=== PATIENT | male | born 1980 | race Caucasian/White ===

== ENCOUNTER 2023-01-30 22:03 | Emergency (ER) | payer MEDICAID ==
[~2023-01-30] VITALS: Ht 157.5 cm; Wt 73.0 kg
[~2023-01-30 22:03] MED LIST: ATOR20TA PO; TOPUD PO; TRAM50TA3 PO
[2023-01-30 22:20] VITALS: BP 126/82; PULSE 89; RESP 16; TEMP 98.3; O2SAT 98
[2023-01-30 23:07] LABS: HEMOGLOBIN 12.8 g/dL (14.0-18.0); MEAN CORPUSCULAR HEMOGLOBIN 30.1 pg (28.0-32.0); MEAN CORPUSCULAR HGB CONC 33.8 g/dL (31.0-37.0); MEAN CORPUSCULAR VOLUME 89.1 fL (80.0-94.0); PLATELET 497 x1000/uL (130-400); RED BLOOD CELL COUNT 4.27 mill/uL (4.7-6.1); RED CELL DISTRIBUTION WIDTH 13.3 % (11.6-14.6); WHITE BLOOD COUNT 11.7 x1000/uL (4.5-11.0)
[2023-01-30 23:13] LABS: CHLORIDE 106 mEq/L (98-107); INDEX HEMOLYSI 1 (1-3); INDEX ICTERIC 1 (1-4); INDEX LIPEMIC 1 (1-3); POTASSIUM 3.3 mEq/L (3.5-5.1); SODIUM 136 mEq/L (136-145)
[2023-01-30 23:23] LABS: ALANINE AMINOTRANSFERASE 40 IU/L (13-61); ALBUMIN 3.7 g/dL (3.4-5.0); ASPARTATE AMINOTRANSFERASE 22 IU/L (15-37); BILIRUBIN TOTAL 0.4 mg/dL (0.1-1.0); CALCIUM 8.9 mg/dL (8.5-10.1); CARBON DIOXIDE 23 mEq/L (21-32); CREATININE 0.7 mg/dL (0.6-1.3); GLUCOSE 115 mg/dL (70-105); PROTEIN TOTAL 7.9 g/dL (6.0-8.3); UREA NITROGEN BLOOD 21 mg/dL (7-21)
[2023-01-30 23:27] LABS: TROPONIN I HIGH SENSITIVITY < 4 ng/L (<78)
[2023-01-31] MEDS ORDERED: KETOROLAC 15MG/ML VIAL IM ONE (04:30)
[2023-01-31] MEDS ORDERED: NAPR-681 MT (06:03)
== END 2023-01-31 06:18 | disposition home or self-care (01) ==
LOC: ER 22:03
DX: R07.89 Other chest pain (principal)
CPT/HCPCS: 99285; 71045; 80053; 85027; 84484; 36415; 93005; 96372; J1885

== ENCOUNTER 2024-07-04 13:24 | Emergency (ER) | payer MEDICAID ==
[~2024-07-04] VITALS: Ht 162.6 cm; Wt 81.6 kg
[~2024-07-04 13:24] MED LIST changes: +NAPR-681 MT
[2024-07-04 13:48] VITALS: O2SAT 100
[2024-07-04 14:19] LABS: CHLORIDE 107 mEq/L (98-107); POTASSIUM 3.5 mEq/L (3.5-5.1); SODIUM 139 mEq/L (136-145)
[2024-07-04 14:20] LABS: CARBON DIOXIDE 22 mEq/L (21-32)
[2024-07-04 14:21] LABS: CALCIUM 9.1 mg/dL (8.7-10.4)
[2024-07-04 14:22] LABS: BASOPHILS % 1.1 % (0.0-2.0); EOSINOPHILS % 2.9 % (0.0-5.0); HEMATOCRIT. 38.8 % (42.0-52.0); HEMOGLOBIN. 13.5 g/dL (14.0-18.0); LYMPHOCYTES % 31.9 % (20.0-50.0); MEAN CORPUSCULAR HEMOGLOBIN 30.3 pg (28.0-32.0); MEAN CORPUSCULAR HGB CONC 34.8 g/dL (31.0-37.0); MEAN CORPUSCULAR VOLUME 87.1 fL (80.0-94.0); MEAN PLATELET VOLUME 6.6 fl (7.4-10.4); MONOCYTES % 7.5 % (2.0-8.0); NEUTROPHILS % 56.6 % (40.0-76.0); PLATELET 441 x1000/uL (130-400); RED BLOOD CELL COUNT 4.45 mill/uL (4.7-6.1); WHITE BLOOD COUNT 6.9 x1000/uL (4.5-11.0)
[2024-07-04 14:25] LABS: CREATININE 0.8 mg/dL (0.6-1.3); GLUCOSE 137 mg/dL (70-105)
[2024-07-04 14:26] LABS: UREA NITROGEN BLOOD 14 mg/dL (9-23)
[2024-07-04] MEDS ORDERED: ONDANSETRON HCL 4MG/2ML INJ IV STA (14:37)
[2024-07-04] MEDS ORDERED: KETOROLAC 30MG/ML VIAL IV STA (14:37)
[2024-07-04 15:03] LABS: PROTHROMBIN TIME 11.5 sec (9.6-11.0)
[2024-07-04 15:07] LABS: ALANINE AMINOTRANSFERASE 21 IU/L (10-49); ALBUMIN 4.3 g/dL (3.2-4.8); ASPARTATE AMINOTRANSFERASE 19 IU/L (<34); BILIRUBIN DIRECT 0.1 mg/dL (<=3.0); BILIRUBIN TOTAL 0.4 mg/dL (0.1-1.0); PROTEIN TOTAL 7.8 g/dL (6.0-8.3)
[2024-07-04] MEDS: SODIUM CHLORIDE 0.9% 1,000 ML IV ONE (19:37)
[2024-07-04] MEDS: ONDANSETRON HCL 4MG/2ML INJ IV NR (19:59)
[2024-07-04] MEDS: KETOROLAC 30MG/ML VIAL IV NR (19:59)
[2024-07-04] MEDS ORDERED: NAPR-681 MT (22:05)
[2024-07-04] MEDS ORDERED: BISM-77 PO (22:05)
[2024-07-04 22:09] LABS: CLARITY URINE CLEAR (CLEAR); COLOR URINE YELLOW (YELLOW); GLUCOSE URINE NEGATIVE (NEGATIVE); KETONES URINE NEGATIVE (NEGATIVE); LEUKOCYTE ESTERASE URINE 1+ (NEGATIVE); NITRITE URINE NEGATIVE (NEGATIVE); OCCULT BLOOD URINE NEGATIVE (NEGATIVE); PH URINE 5.5 (4.5-8.0); PROTEIN URINE NEGATIVE (NEGATIVE); SPECIFIC GRAVITY URINE 1.015 (1.005-1.030); UROBILINOGEN URINE 0.2 E.U./dL (0.2-1.0)
[2024-07-04 22:30] VITALS: BP 129/74; PULSE 75; RESP 16; TEMP 37.16964; O2SAT 100
[2024-07-04 22:54] LABS: BACTERIA URINE TRACE; RBC URINE NONE SEEN /hpf (0-2); SQUAMOUS EPITHELIAL CELL URINE FEW /lpf (RARE/1+)
[2024-07-04] MEDS ORDERED: IOHEXOL-300 100 ML BOTTLE ONE (23:15)
[2024-07-09 04:11] LABS: CHLAMYDIA TRACHOMATIS NAA Negative (Negative); NEISSERIA GONORRHOEAE NAA Negative (Negative)
== END 2024-07-04 22:30 | disposition home or self-care (01) ==
LOC: ER 14:51
DX: K52.9 Noninfective gastroenteritis and colitis, unspecified (principal); R10.12 Left upper quadrant pain
CPT/HCPCS: 99285; 74177; 96374; 96361; 96375; 87491; 87591; 80076; 80048; 81003; 83690; 85025; 85610; 36415; J1885; Q9967; J2405; J7030